=== PATIENT | female | born 1965 | race African-American/Black ===

== ENCOUNTER 2019-08-19 11:56 | Emergency (ER) | payer BC ==
[~2019-08-19] VITALS: Ht 162.6 cm; Wt 79.4 kg
[~2019-08-19 11:56] MED LIST: AFRIN120 MG PO; ALBUTEROL INHAL17 GM INH; ALLERGY INJECTIONS; IBUPROFEN200 M2 PO; MULTI-VITAMIN1 EAC5 PO; QNASL8.7 GM INH; ZYRTEC10 M2 PO; [UNRECOGNIZED DRUG - OTHER] PO
[2019-08-19 15:23] LABS: HEMATOCRIT 45.8 % (37.0-47.0); HEMOGLOBIN 14.9 gm/dL (12.0-15.0); MCH 28.6 pg (26.0-34.0); MCHC 32.6 g/dL (28.0-37.0); MCV 87.7 fL (80.0-100.0); RBC 5.22 mil/uL (4.20-5.00); RDW 14.2 % (10.5-14.5); WBC 6.3 thou/uL (4.0-11.0)
[2019-08-19 15:30] LABS: CALCIUM 9.1 mg/dL (8.5-10.1); CREATININE 0.9 mg/dL (0.6-1.0); POTASSIUM 3.5 mmol/L (3.5-5.1)
[2019-08-19] MEDS ORDERED: CYCLOBENZAPRINE5 MG PO (16:19)
[2019-08-19] MEDS ORDERED: NORCO 10-325 T1 EACH PO (16:19)
[2019-08-19] MEDS ORDERED: ONDANSETRON HCL4 M2 PO (16:28)
[2019-08-19 16:35] VITALS: BP 113/57
== END 2019-08-19 16:36 | disposition home or self-care (01) ==
LOC: ER 11:56
PROVIDERS: Physician Assistant
DX: S09.8XXA Other specified injuries of head, initial encounter (principal); M54.2 Cervicalgia; R10.84 Generalized abdominal pain; M54.9 Dorsalgia, unspecified; M25.511 Pain in right shoulder; J45.909 Unspecified asthma, uncomplicated; Z90.49 Acquired absence of other specified parts of digestive tract; Z86.2 Personal history of diseases of the blood and blood-forming organs and certain disorders involving the immune mechanism; Z98.890 Other specified postprocedural states; Z86.018 Personal history of other benign neoplasm; Z91.040 Latex allergy status; V49.40XA Driver injured in collision with unspecified motor vehicles in traffic accident, initial encounter; Y92.89 Other specified places as the place of occurrence of the external cause; Y93.89 Activity, other specified; Y99.8 Other external cause status